=== PATIENT | female | born 1950 | race Caucasian/White ===

== ENCOUNTER 2019-02-03 17:42 | Emergency (ER) | payer OTHER, MEDICARE ==
[~2019-02-03] VITALS: Wt 60.3 kg
[~2019-02-03 17:42] MED LIST: MOTRIN800 MG PO
[2019-02-03] MEDS ORDERED: CEPHALEXIN500 M1 PO (20:47)
== END 2019-02-03 21:15 | disposition home or self-care (01) ==
LOC: ED 17:42
DX: S61.211A Laceration without foreign body of left index finger without damage to nail, initial encounter (principal); W29.3XXA Contact with powered garden and outdoor hand tools and machinery, initial encounter; Y93.H2 Activity, gardening and landscaping; Y92.096 Garden or yard of other non-institutional residence as the place of occurrence of the external cause; Y99.8 Other external cause status

== ENCOUNTER → 2021-05-07 | Outpatient (CLI) | payer MEDICARE ==
[~2021-05-07] MED LIST changes: +CEPHALEXIN500 M1 PO
== END | disposition home or self-care (01) ==
LOC: RAD 09:38
PROVIDERS: ATTEND Chiropractor
DX: M54.2 Cervicalgia (principal)

== ENCOUNTER → 2022-07-28 | Outpatient (CLI) | payer MEDICARE | END | disposition home or self-care (01) | LOC: LAB 15:08 | PROVIDERS: ATTEND Urology | DX: N28.89 Other specified disorders of kidney and ureter (principal); E11.9 Type 2 diabetes mellitus without complications; Z01.818 Encounter for other preprocedural examination ==

== ENCOUNTER → 2022-08-09 | Outpatient (CLI) | payer MEDICARE | END | disposition home or self-care (01) | LOC: LAB 12:25 | PROVIDERS: ATTEND Urology | DX: N28.89 Other specified disorders of kidney and ureter (principal) ==

== ENCOUNTER 2023-10-16 18:02 | Emergency (ER) | payer MEDICARE ==
[~2023-10-16] VITALS: Ht 160 cm; Wt 55.3 kg
[2023-10-16 18:49] LABS: BASO # 0.1 10*3/uL (0.0-0.1); EOS # 0.1 10*3/uL (0.0-0.4); HEMATOCRIT 40.9 % (37.0-47.0); LYMPH # 1.7 10*3/uL (1.3-4.4); LYMPH % 34.8 % (27.0-41.0); MEAN CELL VOLUME 83.3 fl (81.0-99.0); MEAN CORPUSCULAR HGB 26.7 pg (27.0-31.0); MONO # 0.6 10*3/uL (0.1-1.0); NEUT # 2.4 10*3/uL (2.3-7.9); NEUT % 49.8 % (47.0-73.0); PLATELET COUNT AUTOMATED 419 10*3/uL (130-400); RED BLOOD COUNT 4.91 10*6/uL (4.10-5.10); RED CELL DISTRI WIDTH 14.2 % (0-14.5); WHITE BLOOD COUNT 4.9 10*3/uL (4.8-10.8)
[2023-10-16 19:11] LABS: POTASSIUM 3.4 mmol/L (3.4-5.1); TOTAL PROTEIN 7.2 gm/dL (6.0-8.0)
== END 2023-10-16 19:55 | disposition home or self-care (01) ==
LOC: ED 18:02
PROVIDERS: Physician Assistant Medical
DX: H53.8 Other visual disturbances (principal); Z96.652 Presence of left artificial knee joint